=== PATIENT | male | born 1990 | race Caucasian/White ===

== ENCOUNTER → 2023-11-15 09:11 | Outpatient (CLI) | payer OTHER, SELFPAY ==
--- NOTE | 2023-11-15 09:23 | DI.RAD.S_ITS ---
PROCEDURE: XR LUMBAR SPINE 2-3V INDICATIONS: LOW BACK PAIN TECHNIQUE: 3 views of the lumbar spine were acquired. COMPARISON: None. FINDINGS: Bones: 5 [id number] vertebrae are present. There is normal bony alignment. No vertebral body compression fractures. No suspicious bony lesions. Soft tissues: Overlying bowel gas pattern is normal. No suspicious soft tissue calcifications. IMPRESSION: No acute bony abnormality. Dictated by: Chacha Zamora M.D. on 11/15/2023 at 16:28 Approved by: Chacha Zamora M.D. on 11/15/2023 at 16:28
--- NOTE | 2023-11-15 09:23 | DI.RAD.S_ITS ---
PROCEDURE: XR WRIST RT MIN 3V INDICATIONS: WRIST PAIN TECHNIQUE: 3 views of the wrist were acquired. COMPARISON: None. FINDINGS: Bones: No acute fractures or dislocations. No suspicious bony lesions. Question old healed 5th metacarpal neck fracture. Soft tissues: No suspicious soft tissue calcifications. IMPRESSION: No acute bony abnormality. If clinical symptoms persist or clinical suspicion for pathology is high, a repeat examination in 7-10 days, or advanced imaging such as CT or MRI is suggested for further evaluation. Dictated by: Renetta Alexander M.D. on 11/16/2023 at 8:12 Approved by: Renetta Alexander M.D. on 11/16/2023 at 8:12
== END ==
PROVIDERS: PCP Family Medicine; Referring Provider Family Medicine; Visit Provider Family Medicine
DX: M79.631 Pain in right forearm (principal); M79.641 Pain in right hand; M54.42 Lumbago with sciatica, left side; G89.29 Other chronic pain
CPT/HCPCS: 72100; 73110

== ENCOUNTER 2023-12-18 13:00 | Outpatient (RCR) | payer OTHER, SELFPAY ==
--- NOTE | 2023-11-27 15:55 | OT.OP.EVAL ---
Visit Care Team Role Provider Type Matheus Marks MD Attending Provider Physician Family Provider Primary Care Provider Referring Provider Specialty: Family Practice Obstetrics Address: [address], [place], [address] Email: [email or web address] Occupational Therapy Initial Evaluation OT Outpatient Adult Evaluation Start: 11/27/23 13:29 Freq: Status: Active Protocol: Document 11/27/23 13:30 AMS (Rec: 11/27/23 13:36 AMS [id number]) General Information - Adult Visit Number 1 Plan of Care Dates 11/27/23 - 12/25/23 Insurance Information [facility] OT; Pre-auth initial x 6 visits; will be having PT Visit Start Time 13:00 Visit Stop Time 13:30 Treatment Setting Outpatient Care Note Type Initial Evaluation Identification Confirmed Yes Identification Confirmed By Self Goals [facility] Goals 1. Will will be modified independent with home exercise program referring to written/ visual instructions as needed. 2. Will will present with increased ability to successfully engage in meaningful activities of daily living, as evidenced by the followina. Will will obtain a QuickDASH UE Outcome Score of 15.00 or less. 2b. Will will obtain a QuickDASH UE Work Module Score of 25.00 or less. Assessment/Plan Treatment Assessment Ander (Parker) is a right hand dominant 33 year-old referred to OT secondary to R hand/ forearm pain. Will does use 20 # DB for UE strengthening. 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 Indication of pain/discomfort on Hand/Wrist Pain Assessment Grid relative to volar surface distal to R wrist, distal palmar crease to distal tips of fingers the 3rd, 4th and 5th digits, and dorsal surface distal to R wrist to distal PIPJ of 3rd and 4th digits and DIPJ of 5th digit. Verbal report of discomfort of R 5th digit w/ passive R wrist RD. Right hand/forearm pain reportedly is manageable in the morning, however, pain/ discomfort progresses throughout the day until the evening when he is in constant pain. He does take Ibuprofen for pain and uses ice paick; he does have a wrist brace but is unable to wear it full- time at work. (+) popping of R wrist w/ rolling of R wrist. Goniometer measurements were as follows: 0-70 degrees active R wrist ext vs 0-75 degrees active L wrist ext; 0- 75 degrees active R wrist flex vs 0-65 degrees active L wrist flex. 0-[address] active bilateral wrist [address]. 0- 30 degrees active bilateral wrist UD. Manual Muscle Testing was as follows: 5-/5 MMT for R wrist w/ flex/ext/RD /UD vs 5/5 MMT for L wrist w/ flex/ext/RD/UD. Dynamometer environmental technology professor II strength testing = 103 .0# of force R environmental technology professor (compared to 30-34 y.o. male norms 121.8 +/- 22.4) vs 98.0# of force L environmental technology professor (compared to 30-34 y.o. male norms 110.4 +/- 21.7). 106.0# of force R environmental technology professor w/ elbow ext vs 105.0# of force L environmental technology professor w/ elbow ext. Pinchometer strength testing results: 28.0# of force R lateral canales pinch (compared to 30-34 y.o. male norms 26.4 +/ - 4.8) vs 25.0# of force L lateral canales pinch (compared to 30-34 y.o. male non-dominant norms 26.2 +/- 5.1); 22.0# of force R tip pinch (compared to 30-34 y.o. male norms 17.4 +/ - 6.7) vs 18.0# of force L tip pinch (compared to 30-34 y.o. male non-dominant norms 17.6 +/- 4.8); 26.0# of force R 3- jaw pinch (compared to 30-34 y .o. male norms 24.7 +/- 4.7) vs 25.0# of force L 3-jaw pinch (compared to 30-34 y.o. male non-dominant norms 25.4 + /- 5.7). (-) intrinsic tightness notedMild flexion of digits 2-5 of R hand/at MP joints 2-5. Outpatient OT to help with establishment of home exercise program and discuss joint protection. Home Exercise Program 11/27/23 = Instructed in modified prayer pose w/ contralateral assist for passive MPJ extension in both directions. Hands positioned together at midline w/ fingers of the R hand pushing into L hand fingers 2-5 (extending or bending pointer finger, middle finger, ring finger, and little finger backwards distal to palm); repeat with other hand. Hold for 20-30 sec each. Also instructed in alternative stretch w/ formation of hook with 1 hand and other hand grasping the hooked hand and again extending to bending pointer finger, middle finger, ring finger and little finger backwards at joints distal to palm - the MCPJ joints). Instructed in passive wrist ext w/ elbow in ext or w/ elbow slightly bent for comfort w/ supination and opposite hand bending hand backwards at wrist, as well as passive wrist flex w/ elbow in ext or w/ elbow slightly bent for comfort w/ forearm ponation and opposite hand bend hand towards the floor/ flexing the wrist. Instructed in passive wrist RD/UD w/ use of TT. Rec hold for 20-30 each and to complete with both arms. Length of treatment (weeks) 4 Plan of Care Start Date 11/27/23 Plan of Care End Date 12/25/23 Treatment Frequency Once a Week Therapeutic Contents Active Range of Motion, Functional Activities,Home Exercise Program,Joint Protection,Manual Therapy, Stretching/Flexibility Activities,Therapeutic Activities,Therapeutic Exercises,Modalities Modalities As Needed,As Prescribed Additional Types of Modalities Heat/Ice/Contrast Baths
--- NOTE | 2023-12-04 15:34 | OT.OP.TRT ---
Visit Care Team Role Provider Type Matheus Marks MD Attending Provider Physician Family Provider Primary Care Provider Referring Provider Specialty: Family Practice Obstetrics [facility] [facility] [place], [address] Email: [email or web address] Occupational Therapy Treatment Note OT Outpatient Treatment Note - Adult Start: 11/27/23 13:29 Freq: Status: Active Protocol: Document 12/04/23 15:31 AMS (Rec: 12/04/23 15:33 AMS [id number]) OT Outpatient Adult Treatment Note - Subjective Observations Will did not attend his scheduled 1:00 pm outpatient OT appointment; thus, clinician contacted Will via Patient Connect Live to notify him of his missed appointment and let him know the time and date of his next scheduled appointment. Phone number for outpatient clinic was included in Patient Connect Live message. - - - -
--- NOTE | 2023-12-11 12:22 | OT.OP.TRT ---
Visit Care Team Role Provider Type Matheus Marks MD Attending Provider Physician Family Provider Primary Care Provider Referring Provider Specialty: Family Practice Obstetrics Address: [address], [place], [address] Email: [email or web address] Occupational Therapy Treatment Note OT Outpatient Treatment Note - Adult Start: 11/27/23 13:29 Freq: Status: Active Protocol: Document 12/11/23 12:06 [facility] (Rec: 12/11/23 12:21 [facility] [id number]) OT Outpatient Adult Treatment Note Session Time Visit Start Time 11:20 Visit Stop Time 11:50 Visit Information Visit Number 2 Plan of Care Dates 11/27/23 - 12/25/23 Insurance Information [facility] OT; Pre-auth initial x 6 visits; will be having PT Setting Treatment Setting Outpatient Care Visit Type Note Type Treatment Note General Information General Information Ander (Parker) is a right hand dominant 33 year-old referred to OT secondary to R hand/ forearm pain. Will does use 20 # DB for UE strengthening. - Subjective Observations Report of concern re: carpal tunnel symptoms. - Objective Objective Measurements Please refer to below for progress towards meeting established OT goals: Vocational Technical Education Teacher Goals 1. Will will be modified independent with home exercise program referring to written/ visual instructions as needed. 2. Will will present with increased ability to successfully engage in meaningful activities of daily living, as evidenced by the followina. Will will obtain a QuickDASH UE Outcome Score of 15.00 or less. 2b. Will will obtain a QuickDASH UE Work Module Score of 25.00 or less. - Exercises 3 Descriptor Dowel w/ DB. 7# DB. Wrist flex/ext. x 3 cycles. 10# DB. Wrist flex/ext. x 1 cycle. 2 Descriptor UE strengthening. Blue flex bar. Pronation. Elbows 90 degrees. 1 x 15. Elbows ext. 1 x 15. Supination. Elbows 90 degrees. 1 x 15. Elbow ext. 1 x 15. Horizontal orientation of flex bar. Wrist flex/ext. 2 x 15. Vertical orientation of flex bar. Wrist flex/ext. [address]. 2 x 15. Wrist UD. 2 x 15. 1 Descriptor Passive range of motion/Tendon glides Intrinsic/passive hook fist. B x 20 sec. Intrinsic/passive hook fist MPJ ext. B x 20 sec. Passive wrist ext w/ forearm pronation. B x 20 sec. Passive wrist flex w/ forearm pronation. B x [address] B x 20 sec. Passive wrist UD. B x 20 sec. - Assessment Assessment of Improvement Will verbalized concern re: CTS symptoms. Reviewed passive intrinsic stretches w/ and without MPJ ext, passive wrist stretches (wrist flex/ext/RD/ UD). Informed Will that passive wrist flex/ext is also typically rec for CTS. Did not instruct in self- myofasical release, median nerve glides, or positioning/ posturing (or potential need for splinting); also did not have him execute reverse phalen's test given focus on identifying potential distal UE strengthening. Thus, recommend reviewing these at time of next session. Will did not demonstrate any difficulties w/ distal UE strengthening; thus, may need to focus on range of motion, glides, joint protection, activity modification w/ some UE strengthening intermixed. Home Exercise Program 11/27/23 = Instructed in modified prayer pose w/ contralateral assist for passive MPJ extension in both directions. Hands positioned together at midline w/ fingers of the R hand pushing into L hand fingers 2-5 (extending or bending pointer finger, middle finger, ring finger, and little finger backwards distal to palm); repeat with other hand. Hold for 20-30 sec each. Also instructed in alternative stretch w/ formation of hook with 1 hand and other hand grasping the hooked hand and again extending to bending pointer finger, middle finger, ring finger and little finger backwards at joints distal to palm - the MCPJ joints). Instructed in passive wrist ext w/ elbow in ext or w/ elbow slightly bent for comfort w/ supination and opposite hand bending hand backwards at wrist, as well as passive wrist flex w/ elbow in ext or w/ elbow slightly bent for comfort w/ forearm ponation and opposite hand bend hand towards the floor/ flexing the wrist. Instructed in passive wrist RD/UD w/ use of TT. Rec hold for 20-30 each and to complete with both arms. - Plan Therapy Recommendations Advance per Rehabilitation Protocol
--- NOTE | 2023-12-18 13:41 | OT.OP.TRT ---
Visit Care Team Role Provider Type Matheus Marks MD Attending Provider Physician Family Provider Primary Care Provider Referring Provider Specialty: Family Practice Obstetrics Address: [address], [place], [address] Email: [email or web address] Occupational Therapy Treatment Note OT Outpatient Treatment Note - Adult Start: 11/27/23 13:29 Freq: Status: Active Protocol: Document 12/18/23 13:30 AMS (Rec: 12/18/23 13:41 AMS [id number]) OT Outpatient Adult Treatment Note Session Time Visit Start Time 13:07 Visit Stop Time 13:30 Visit Information Visit Number 2 Plan of Care Dates 11/27/23 - 12/25/23 Insurance Information [facility] OT; Pre-auth initial x 6 visits; will be having PT Setting Treatment Setting Outpatient Care Visit Type Note Type Treatment Note General Information General Information Ander Nava) is a right hand dominant 33 year-old referred to OT secondary to R hand/ forearm pain. Will does use 20 # DB for UE strengthening. - Subjective Identification Type Name Identification Reconciled With Medical Record Observations Will indicated that his R hand bothers him more; for instance, when playing the piano he notices that his left hand moves freely where as his R hand is stiff and in pain a lot of the time. Report of living on a farm; has ducks, chickens, and pigs. - Objective Objective Measurements Please refer to below for progress towards meeting established OT goals: Halfway Goals 1. Will will be modified independent with home exercise program referring to written/ visual instructions as needed. 2. Will will present with increased ability to successfully engage in meaningful activities of daily living, as evidenced by the followina. Will will obtain a QuickDASH UE Outcome Score of 15.00 or less. 2b. Will will obtain a QuickDASH UE Work Module Score of 25.00 or less. - Exercises 3 Descriptor Dowel w/ DB. 7# DB. Wrist flex/ext. x 4 cycles. 2 Descriptor UE strengthening. Blue flex bar. Pronation. Elbows ext. 3 x 15. Supination. Elbows ext. 3 x 15 . Horizontal orientation of flex bar. Wrist flex. 3 x 15. Horizontal orientation of flex bar. Wrist ext. 3 x 15 Horizontal orientation of flex bar. Forearm pronation. Wrist RD. 3 x 15. Horizontal orientation of flex bar. Forearm supination. Wrist UD. 3 x 15. 1 Descriptor Passive range of motion/Tendon glides Intrinsic/passive hook fist. B x 20 sec. Intrinsic/passive hook fist MPJ ext. B x 20 sec. Passive wrist ext w/ forearm pronation. B x 20 sec. Passive wrist flex w/ forearm pronation. B x [address] B x 20 sec. Passive wrist UD. B x 20 sec. - Assessment Assessment of Improvement No reproduction of compression symptoms w/ reverse phalen's test; (-) verbal complaint of discomfort and/or (-) observed shaking of either hand post- 1 minute. Increased number of sets with flex bar strengthening exercises; increased dowel strengthening exercise w/ use of 7# DB to 4 sets vs 3. Did not complete w/ 10# DB on this date. Will complained of R hand pain/ discomfort; w/ observed decreased coordination of the R hand in comparison to the L hand w/ piano playing. Will cont to quite well w/ distal UE strengthening; thus, may want to instruct in self- myofasical release, and focus on range of motion, glides, joint protection, activity modification w/ some UE strengthening intermixed. Home Exercise Program 11/27/23 = Instructed in modified prayer pose w/ contralateral assist for passive MPJ extension in both directions. Hands positioned together at midline w/ fingers of the R hand pushing into L hand fingers 2-5 (extending or bending pointer finger, middle finger, ring finger, and little finger backwards distal to palm); repeat with other hand. Hold for 20-30 sec each. Also instructed in alternative stretch w/ formation of hook with 1 hand and other hand grasping the hooked hand and again extending to bending pointer finger, middle finger, ring finger and little finger backwards at joints distal to palm - the MCPJ joints). Instructed in passive wrist ext w/ elbow in ext or w/ elbow slightly bent for comfort w/ supination and opposite hand bending hand backwards at wrist, as well as passive wrist flex w/ elbow in ext or w/ elbow slightly bent for comfort w/ forearm ponation and opposite hand bend hand towards the floor/ flexing the wrist. Instructed in passive wrist RD/UD w/ use of TT. Rec hold for 20-30 each and to complete with both arms. - Plan Therapy Recommendations Advance per Rehabilitation Protocol
--- NOTE | 2024-01-18 11:29 | OT.OP.DC ---
Visit Care Team Role Provider Type Matheus Marks MD Attending Provider Physician Family Provider Primary Care Provider Referring Provider Address: [facility] [address], [place], [address] Email: [email or web address] Outpatient OT Outpatient Adult Evaluation Start: 11/27/23 13:29 Freq: Status: Active Protocol: Document 11/27/23 13:30 AMS (Rec: 11/27/23 13:36 AMS [id number]) General Information - Adult Visit Information Visit Number 1 Plan of Care Dates 11/27/23 - 12/25/23 Insurance Information [facility] OT; Pre-auth initial x 6 visits; will be having PT Session Time Visit Start Time 13:00 Visit Stop Time 13:30 Setting Treatment Setting Outpatient Care Visit Type Note Type Initial Evaluation Identification Identification Confirmed Yes Identification Confirmed By Self Goals Senior Care Goals Senior Care Goals 1. Will will be modified independent with home exercise program referring to written/ visual instructions as needed. 2. Will will present with increased ability to successfully engage in meaningful activities of daily living, as evidenced by the followina. Will will obtain a QuickDASH UE Outcome Score of 15.00 or less. 2b. Will will obtain a QuickDASH UE Work Module Score of 25.00 or less. Assessment/Plan Assessment Treatment Assessment Ander (Parker) is a right hand dominant 33 year-old referred to OT secondary to R hand/ forearm pain. Will does use 20 # DB for UE strengthening. 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 Indication of pain/discomfort on Hand/Wrist Pain Assessment Grid relative to volar surface distal to R wrist, distal palmar crease to distal tips of fingers the 3rd, 4th and 5th digits, and dorsal surface distal to R wrist to distal PIPJ of 3rd and 4th digits and DIPJ of 5th digit. Verbal report of discomfort of R 5th digit w/ passive R wrist RD. Right hand/forearm pain reportedly is manageable in the morning, however, pain/ discomfort progresses throughout the day until the evening when he is in constant pain. He does take Ibuprofen for pain and uses ice paick; he does have a wrist brace but is unable to wear it full- time at work. (+) popping of R wrist w/ rolling of R wrist. Goniometer measurements were as follows: 0-70 degrees active R wrist ext vs 0-75 degrees active L wrist ext; 0- 75 degrees active R wrist flex vs 0-65 degrees active L wrist flex. 0-[address] wrist [address]. 0- 30 degrees active bilateral wrist UD. Manual Muscle Testing was as follows: 5-/5 MMT for R wrist w/ flex/ext/RD /UD vs 5/5 MMT for L wrist w/ flex/ext/RD/UD. Dynamometer experimental machining lab manager II strength testing = 103 .0# of force R experimental machining lab manager (compared to 30-34 y.o. male norms 121.8 +/- 22.4) vs 98.0# of force L experimental machining lab manager (compared to 30-34 y.o. male norms 110.4 +/- 21.7). 106.0# of force R experimental machining lab manager w/ elbow ext vs 105.0# of force L experimental machining lab manager w/ elbow ext. Pinchometer strength testing results: 28.0# of force R lateral canales pinch (compared to 30-34 y.o. male norms 26.4 +/ - 4.8) vs 25.0# of force L lateral canales pinch (compared to 30-34 y.o. male non-dominant norms 26.2 +/- 5.1); 22.0# of force R tip pinch (compared to 30-34 y.o. male norms 17.4 +/ - 6.7) vs 18.0# of force L tip pinch (compared to 30-34 y.o. male non-dominant norms 17.6 +/- 4.8); 26.0# of force R 3- jaw pinch (compared to 30-34 y .o. male norms 24.7 +/- 4.7) vs 25.0# of force L 3-jaw pinch (compared to 30-34 y.o. male non-dominant norms 25.4 + /- 5.7). (-) intrinsic tightness notedMild flexion of digits 2-5 of R hand/at MP joints 2-5. Outpatient OT to help with establishment of home exercise program and discuss joint protection. Home Exercise Program 11/27/23 = Instructed in modified prayer pose w/ contralateral assist for passive MPJ extension in both directions. Hands positioned together at midline w/ fingers of the R hand pushing into L hand fingers 2-5 (extending or bending pointer finger, middle finger, ring finger, and little finger backwards distal to palm); repeat with other hand. Hold for 20-30 sec each. Also instructed in alternative stretch w/ formation of hook with 1 hand and other hand grasping the hooked hand and again extending to bending pointer finger, middle finger, ring finger and little finger backwards at joints distal to palm - the MCPJ joints). Instructed in passive wrist ext w/ elbow in ext or w/ elbow slightly bent for comfort w/ supination and opposite hand bending hand backwards at wrist, as well as passive wrist flex w/ elbow in ext or w/ elbow slightly bent for comfort w/ forearm ponation and opposite hand bend hand towards the floor/ flexing the wrist. Instructed in passive wrist RD/UD w/ use of TT. Rec hold for 20-30 each and to complete with both arms. Plan Length of treatment (weeks) 4 Plan of Care Start Date 11/27/23 Plan of Care End Date 12/25/23 Treatment Frequency Once a Week Therapeutic Contents Active Range of Motion, Functional Activities,Home Exercise Program,Joint Protection,Manual Therapy, Stretching/Flexibility Activities,Therapeutic Activities,Therapeutic Exercises,Modalities Modalities As Needed,As Prescribed Additional Types of Modalities Heat/Ice/Contrast Baths Functional Wrist/Hand Scan Hand Side Sensory Assessment Sensory Profile2 OT Outpatient Treatment Note - Adult Start: 11/27/23 13:29 Freq: Status: Active Protocol: Document 01/18/24 11:27 [facility] (Rec: 01/18/24 11:29 [facility] [id number]) OT Outpatient Adult Treatment Note Visit Information Visit Number 2 Plan of Care Dates 11/27/23 - 12/25/23 Insurance Information [facility] OT; Pre-auth initial x 6 visits; will be having PT Setting Treatment Setting Outpatient Care Visit Type Note Type Discharge Summary - Subjective Observations Will has not been seen in the outpatient setting by OT since 12/18/23 and outpatient OT POC on 12/25/23; thus, recommend d/c from outpatient OT at this time and re- evaluate as deemed appropriate by PCP w/ receipt of new referral. - Objective Objective Measurements Please refer to below for progress towards meeting established OT goals: Quality Assurance Lab Technician Goals D/C ALL GOALS OF 01/18/24 1. Will will be modified independent with home exercise program referring to written/ visual instructions as needed. 2. Will will present with increased ability to successfully engage in meaningful activities of daily living, as evidenced by the followina. Will will obtain a QuickDASH UE Outcome Score of 15.00 or less. 2b. Will will obtain a QuickDASH UE Work Module Score of 25.00 or less. - - Assessment Assessment of Improvement Will has not been seen in the outpatient setting by OT since 12/18/23 and outpatient OT POC on 12/25/23; thus, recommend d/c from outpatient OT at this time and re- evaluate as deemed appropriate by PCP w/ receipt of new referral. - Plan Therapy Recommendations Discharge from Occupational Therapy
== END 2024-02-18 14:06 | disposition home or self-care (01) ==
LOC: OT 13:00
PROVIDERS: Family Provider Family Medicine; PCP Family Medicine; Referring Provider Family Medicine; Visit Provider Family Medicine
DX: M79.641 Pain in right hand (principal); M79.631 Pain in right forearm
CPT/HCPCS: 97110; 97165

== ENCOUNTER 2023-12-20 10:30 | Outpatient (RCR) | payer OTHER, SELFPAY ==
--- NOTE | 2023-11-29 16:49 | PT.OIE ---
Current Diagnoses Lumbago with sciatica, left side (11/29/23) Past Medical History (Last Updated 11/15/23 @ 21:27 by Matheus Marks MD) History of varicocele (~2013) Visit Care Team Role Provider Type Matheus Marks MD Attending Provider Physician Family Provider Primary Care Provider Referring Provider Specialty: Family Practice Obstetrics Address: [address] [place] [address], [facility] Email: [email or web address] Physical Therapy Initial Evaluation PT-OP-A Visit Information Start: 11/29/23 07:25 Freq: Status: Active Protocol: Document 11/29/23 08:21 LRN (Rec: 11/29/23 09:11 LRN [id number]) Out-Patient Physical Therapy Visit Information Visit Information Visit Type Initial Evaluation Visit Start Time 08:21 Visit Stop Time 09:05 Visit Number 1 Evaluation Information Evaluation Date 11/29/23 Precautions Precautions Torn ACL 7 rs ago, vericele ( scrotum), chronic neck/back pain. PT-OP-B Current Condition Start: 11/29/23 07:25 Freq: Status: Active Protocol: Document 11/29/23 08:21 LRN (Rec: 11/29/23 09:11 LRN [id number]) Current Condition History of Current Condition Onset Date 4-5 months ago. Current Complaints Back/LLE posterior thigh constant pain. History of Current Condition Back pain since high school. Has high pain tolerance, but in past 4-5 months the back pain is now down the posterior LLE into the thigh and sometimes into the ankle. Hx of torn ACL, states the L knee hurts like it was when torn. Prior Treatments and Tests None. Treatment Goals Patient/Caregiver Goals Pt goal is to elimnate LLE pain. Self care HEP. 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 Current Functional Impairments (Reported) Functional Limitations- Work/School Avoiding heavy stuff at work as much as possible. Personal Factors Other Personal Factors That May Effect Torn ACL 7 rs ago, cosmetics counter manager at [employer] restaurant with some lifting, lives on a farm and does farmwork PT-OP-C Subjective Start: 11/29/23 07:25 Freq: Status: Active Protocol: Document 11/29/23 08:21 LRN (Rec: 11/29/23 09:11 LRN [id number]) Patient Questionnaires Oswestry Low Back Index Oswestry Score 32 Oswestry Impairment 20 to 39% Impaired (Score 20- 39) OP-PT Pain Assessment Pain Assessment Grid Paper Pain Assessment Grid Completed Yes Location LB/LLE pain Pain Location Details LB/Posterior LLE Intensity 6 Scale Used Numeric (0 - 10) Description Aching,Burning,Shooting, Stabbing,Tightness,Throbbing Description- Other Sometimes stabbing at L SIJ Frequency Frequent Radiating Location Posterior LLE to knee, sometimes to ankle. Variations/Patterns LBP is constant, LLE pain is constant but varies in intensity PT-OP-J Posture/Palpation/Skin Start: 11/29/23 07:25 Freq: Status: Active Protocol: Document 11/29/23 08:21 LRN (Rec: 11/29/23 09:11 LRN [id number]) Posture Evaluation Position Standing L-Spine Posture Increased Lordosis,Shifted Left Pelvis Posture Neutral Weight Distribution Weight Shifted Right,Weight Shifted Anterior Ankle/Foot Posture (R) Forefoot Abducted Palpation Assessment Location L lateral hip Palpation Location L lateral hip Palpation Findings Muscle Guarding Back Palpation Location L3 & S3 Palpation Findings Tenderness PT-OP-K Range of Motion Start: 11/29/23 07:25 Freq: Status: Active Protocol: Document 11/29/23 08:21 LRN (Rec: 11/29/23 09:11 LRN [id number]) Hip Goniometric Range of Motion Hip Right Passive Testing Position Supine Internal Rotation 50 External Rotation 45 Left Passive Testing Position Supine Internal Rotation 40 External Rotation 50 PT-OP-L Special Tests Start: 11/29/23 07:25 Freq: Status: Active Protocol: Document 11/29/23 08:21 LRN (Rec: 11/29/23 09:11 LR [id number]) Special Tests Lumbar Spine Special Tests Suraj Test Results + bilaterally with L worse than R Manual Traction Test Results - Straight Leg Raise Test Results + left @ 50 deg's, - R @ 80 deg's. Comments Posterior LLE tightness discomfort Slump Test Results + LE Vertical Spine Loading Test Results - Hip Special Tests Log Roll Test Test Results - left Stinchfield Resisted Hip Flexion Test Results - Left Comments c/o pain at Iliopsoas region of pelvis DEEPALI Test Results + Left PT-OP-M Strength Start: 11/29/23 07:25 Freq: Status: Active Protocol: Document 11/29/23 08:21 LRN (Rec: 11/29/23 09:11 LRN [id number]) Trunk Strength Trunk Manual Muscle Testing Core Stabilization Mild decrease in trunk rot strength. Hip Strength Hip Manual Muscle Testing Right Flexion (L2) 5 Normal Left Flexion (L2) 5 Normal PT-OP-Q Treatments Start: 11/29/23 07:25 Freq: Status: Active Protocol: Document 11/29/23 08:21 LRN (Rec: 11/29/23 09:11 LRN [id number]) Therapeutic Exercises Supine Exercises L Hamstring/LE neural glids Side left Reps/Minutes 3' Comments Extra time was needed to determine max tolerated stretch Prone Exercises JO Prone Exercise Name JO Reps/Minutes 5x Comments Cued to keep pelvis on table. Sitting Exercises Hip ER stretch Side left Reps/Minutes 2' Held due to Not able to find a painfree position. Piriformis stretch Side left Reps/Minutes 2' Not able to get appropriate stretch, held until next visit Self-Care/Home Management Treatment Education Patient Education Body Mechanics,Posture Other Education Discussed results of evaluation, goals, and plan of care (POC) with pt, discussed attendance/cx/dns policy; pt agreeable to goals, attendance /cx/dns policy and POC. Activities Self-Care/Home Management Activities I/S pt to monitor and correct sitting/standing posture at home and work. I/S LLE neural glide, sitting hip ER/piriformis stretch, and JO ex. PT-OP-T Assessment and Plan Start: 11/29/23 07:25 Freq: Status: Active Protocol: Document 11/29/23 08:21 LRN (Rec: 11/29/23 09:11 LRN [id number]) Physical Therapy Assessment Rehab Potential Rehabilitation Potential Good Evaluation Complexity Number of Personal Factors/Comorbidities 3 or More Number of Body Systems Impaired 4 or More Clinical Presentation at Evaluation Evolving Impairments Impairments Activity Tolerance,Pain, Posture,ROM,Soft Tissue Mobility,Strength Goals Two Impairment LBP/L LE pain rated 6/10 Impairment DUY score is 16/50 (32/100= 32 % impaired) Short Term Goal (STG) Decrease LBP & LLE pain 50% STG Duration 4 wks-12/28/23 Customer Service Correspondence Clerk Goal (LTG) Decrease LBP to prior level and eliminate LLE pain. Improve function per DUY score . LTG Duration 8 wks-01/25/24 One Impairment Pt lacks self care HEP. Impairment Self care HEP. Short Term Goal (STG) Pt will be educated in proper sit/stand posture and understanding stress on back in different postures (Proper Posture: Rowley to Safe Movement ). STG Duration 4 wks-12/28/23 Snf Goal (LTG) Pt will be independent in a self care HEP of low back, core and hip ROM and strengthening exercises. LTG Duration 8 wks-01/25/24 Assessment Summary Assessment Pt is a 33 yo male who presents with inconsistent symptoms, but symptoms more indicative of L sciatic pain ( posterior hip/LE pain, +Deepali Test). He shows signs of possible neural involvement with + slump and PSLR test. The pt has a history of chronic back pain that may be cause of his inconsistent provacative testing results. The pt does show decreased hip mobility and postural changes that would also benefit from skilled physical therapy for pt education, thera activity training, exercise, manual therapy, JMT, neuro- reeducation, and use of modalities and HEP. Physical Therapy Plan Frequency and Duration Frequency of Treatment 1x/Week Duration of treatment (weeks) 8 Plan of Care Start Date 11/29/23 Plan of Care End Date 01/25/24 Therapeutic Interventions Therapeutic Interventions Home Exercise Program,Joint Mobilizations,Manual Therapy, Neuromuscular Re-education, Self-Care/Home Management,Soft Tissue Mobilization, Therapeutic Activities, Therapeutic Exercises Next Visit Focus/Plan Next Note Type Treatment Note Next Visit Plan 6 visits, others pre-auth required. Discuss if pt to be mostly on HEP if financial concerns. Review I/S LLE neural glide, sitting hip ER/ piriformis stretch, and JO ex . Add L Iliopsoas stretch if tolerated and trunk rotation strengthenig. Assess trunk mobility and add to HEP ex's as appropriate. Assess for pelvic obliquity. ?Sacral balancing & pelvic stab. Continue with Hip stretching that is tolerable and appropriate. Discuss/educate pt in proper sitting and standing posture with emphasis on decreasing lordosis in standing and preventing lumbar flexion in sitting, equal weightbearing standing. Discuss/educate in general body mechanics. Modalities (MH/IFES, Ice/IFES) for pain management.
--- NOTE | 2023-11-29 16:51 | PT.OPPOC ---
Physical, Occupational & Speech Therapy At [facility] Current Diagnoses Lumbago with sciatica, left side (11/29/23) Visit Care Team Role Provider Type Matheus Marks MD Attending Provider Physician Family Provider Primary Care Provider Referring Provider Specialty: Family Practice Obstetrics Address: [facility] [place], [address] Email: [email or web address] Plan Of Care PT-OP-T Assessment and Plan Start: 11/29/23 07:25 Freq: Status: Active Protocol: Document 11/29/23 08:21 LRN (Rec: 11/29/23 09:11 LRN [id number]) Physical Therapy Assessment Rehab Potential Rehabilitation Potential Good Evaluation Complexity Number of Personal Factors/Comorbidities 3 or More Number of Body Systems Impaired 4 or More Clinical Presentation at Evaluation Evolving Impairments Impairments Activity Tolerance,Pain, Posture,ROM,Soft Tissue Mobility,Strength Goals Two Impairment LBP/L LE pain rated 6/10 Impairment DUY score is 16/50 (32/100= 32 % impaired) Short Term Goal (STG) Decrease LBP & LLE pain 50% STG Duration 4 wks-12/28/23 Pit Inspector Goal (LTG) Decrease LBP to prior level and eliminate LLE pain. Improve function per DUY score . LTG Duration 8 wks-01/25/24 One Impairment Pt lacks self care HEP. Impairment Self care HEP. Short Term Goal (STG) Pt will be educated in proper sit/stand posture and understanding stress on back in different postures (Proper Posture: Rowley to Safe Movement ). STG Duration 4 wks-12/28/23 Fdc Goal (LTG) Pt will be independent in a self care HEP of low back, core and hip ROM and strengthening exercises. LTG Duration 8 wks-01/25/24 Assessment Summary Assessment Pt is a 33 yo male who presents with inconsistent symptoms, but symptoms more indicative of L sciatic pain ( posterior hip/LE pain, +Miri Test). He shows signs of possible neural involvement with + slump and PSLR test. The pt has a history of chronic back pain that may be cause of his inconsistent provacative testing results. The pt does show decreased hip mobility and postural changes that would also benefit from skilled physical therapy for pt education, thera activity training, exercise, manual therapy, JMT, neuro- reeducation, and use of modalities and HEP. Physical Therapy Plan Frequency and Duration Frequency of Treatment 1x/Week Duration of treatment (weeks) 8 Plan of Care Start Date 11/29/23 Plan of Care End Date 01/25/24 Therapeutic Interventions Therapeutic Interventions Home Exercise Program,Joint Mobilizations,Manual Therapy, Neuromuscular Re-education, Self-Care/Home Management,Soft Tissue Mobilization, Therapeutic Activities, Therapeutic Exercises Next Visit Focus/Plan Next Note Type Treatment Note Next Visit Plan 6 visits, others pre-auth required. Discuss if pt to be mostly on HEP if financial concerns. Review I/S LLE neural glide, sitting hip ER/ piriformis stretch, and JO ex . Add L Iliopsoas stretch if tolerated and trunk rotation strengthenig. Assess trunk mobility and add to HEP ex's as appropriate. Assess for pelvic obliquity. ?Sacral balancing & pelvic stab. Continue with Hip stretching that is tolerable and appropriate. Discuss/educate pt in proper sitting and standing posture with emphasis on decreasing lordosis in standing and preventing lumbar flexion in sitting, equal weightbearing standing. Discuss/educate in general body mechanics. Modalities (MH/IFES, Ice/IFES) for pain management. Plan of Care Dates Plan of Care Start Date 11/29/23 Plan of Care End Date 01/25/24 Electronically Signed by: Rabia Rutherford, PT 11/30/231950 If you are in agreement with this Plan of Care, please return a signed and dated copy. I have reviewed this Plan of Care and certify that the skilled therapy services above are required to meet the patient?s needs. Physician Signature Date Printed Name and Credentials Clinical Instructor Signature Printed Name and Credentials
--- NOTE | 2023-12-11 17:08 | PT.OTN ---
Current Diagnoses Lumbago with sciatica, left side (12/11/23) Physical Therapy Treatment Note PT-OP-A Visit Information Start: 11/29/23 07:25 Freq: Status: Active Protocol: Document 12/11/23 08:17 LRN (Rec: 12/11/23 09:05 LRN [id number]) Out-Patient Physical Therapy Visit Information Visit Information Visit Type Treatment Note Visit Start Time 08:17 Visit Stop Time 09:01 Visit Number 3 Evaluation Information Evaluation Date 11/29/23 Precautions Precautions Torn ACL 7 rs ago, vericele ( scrotum), chronic neck/back pain. PT-OP-B Current Condition Start: 11/29/23 07:25 Freq: Status: Active Protocol: Document 11/29/23 08:21 LRN (Rec: 11/29/23 09:11 LRN [id number]) Current Condition History of Current Condition Onset Date 4-5 months ago. Current Complaints Back/LLE posterior thigh constant pain. History of Current Condition Back pain since high school. Has high pain tolerance, but in past 4-5 months the back pain is now down the posterior LLE into the thigh and sometimes into the ankle. Hx of torn ACL, states the L knee hurts like it was when torn. Prior Treatments and Tests None. Treatment Goals Patient/Caregiver Goals Pt goal is to elimnate LLE pain. Self care HEP. 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 Current Functional Impairments (Reported) Functional Limitations- Work/School Avoiding heavy stuff at work as much as possible. Personal Factors Other Personal Factors That May Effect Torn ACL 7 rs ago, fixed income portfolio manager at [employer] restaurant with some lifting, lives on a farm and does farmwork PT-OP-C Subjective Start: 11/29/23 07:25 Freq: Status: Active Protocol: Document 12/11/23 08:17 LRN (Rec: 12/11/23 09:05 LRN [id number]) OP-PT Subjective Patient Comments Patient Comments Pt reports his L posterior distal thigh has been painful around the time of his LB/ Sciatic pain. Has been doing more around the farm. Adding more to a building, contruction type stuff. Trying to refrain from lifting , but doing construction. Today LBP/LLE is rated 5-6/10. Taking IBP and ice. PT-OP-J Posture/Palpation/Skin Start: 11/29/23 07:25 Freq: Status: Active Protocol: Document 11/29/23 08:21 LRN (Rec: 11/29/23 09:11 LRN [id number]) Posture Evaluation Position Standing L-Spine Posture Increased Lordosis,Shifted Left Pelvis Posture Neutral Weight Distribution Weight Shifted Right,Weight Shifted Anterior Ankle/Foot Posture (R) Forefoot Abducted Palpation Assessment Location L lateral hip Palpation Location L lateral hip Palpation Findings Muscle Guarding Back Palpation Location L3 & S3 Palpation Findings Tenderness PT-OP-K Range of Motion Start: 11/29/23 07:25 Freq: Status: Active Protocol: Document 11/29/23 08:21 LRN (Rec: 11/29/23 09:11 LRN [id number]) Hip Goniometric Range of Motion Hip Right Passive Testing Position Supine Internal Rotation 50 External Rotation 45 Left Passive Testing Position Supine Internal Rotation 40 External Rotation 50 PT-OP-L Special Tests Start: 11/29/23 07:25 Freq: Status: Active Protocol: Document 11/29/23 08:21 LRN (Rec: 11/29/23 09:11 LRN [id number]) Special Tests Lumbar Spine Special Tests Suraj Test Results + bilaterally with L worse than R Manual Traction Test Results - Straight Leg Raise Test Results + left @ 50 deg's, - R @ 80 deg's. Comments Posterior LLE tightness discomfort Slump Test Results + LE Vertical Spine Loading Test Results - Hip Special Tests Log Roll Test Test Results - left [facility] Resisted Hip Flexion Test Results - Left Comments c/o pain at Iliopsoas region of pelvis DEEPALI Test Results + Left PT-OP-M Strength Start: 11/29/23 07:25 Freq: Status: Active Protocol: Document 11/29/23 08:21 LRN (Rec: 11/29/23 09:11 LRN [id number]) Trunk Strength Trunk Manual Muscle Testing Core Stabilization Mild decrease in trunk rot strength. Hip Strength Hip Manual Muscle Testing Right Flexion (L2) 5 Normal Left Flexion (L2) 5 Normal PT-OP-Q Treatments Start: 11/29/23 07:25 Freq: Status: Active Protocol: Document 12/11/23 08:17 LRN (Rec: 12/11/23 09:05 LRN [id number]) Therapeutic Exercises Supine Exercises TA/SLR Supine Exercise Name R>L due to poor stab on R (non -painful side) Side bilateral Resistance Started with Cheng hand/knee press. Reps/Minutes 3' Comments Extra time taken for pt to identify core ms to contract Hip ER Side left Reps/Minutes 2' Piriformis stretch Side left Reps/Minutes 2' TA/heel slides Side left Reps/Minutes 15x 2 (3') Comments Pt able to keep pelvis level with training TA tightening Reps/Minutes 2' Prone Exercises JO Prone Exercise Name JO Reps/Minutes 10x 2 (3') Comments Cued for breath and to keep pelvis on table. Sitting Exercises Hamstring/LE neural glide Sitting Exercise Name For L sciatic/LBP Side left Reps/Minutes 2' Comments Cued to not move ankle into pain. Manual Therapy Treatment Soft Tissue Mobilization L hip Body Location posterior hip, hamstring, IT Band Mobilization Type Instrument Assisted Intensity/Depth Moderate Body Position Prone & R sidelie Manual Traction LLE axial traction Details DC'd after traction Body Position Supine Reps/Duration 2' Comments No change in pain. Lumbar Details Lumbar traction - DC'd Body Position Hooklying Reps/Duration 2' Comments Incr in LBP PT-OP-T Assessment and Plan Start: 11/29/23 07:25 Freq: Status: Active Protocol: Document 12/11/23 08:17 LRN (Rec: 12/11/23 09:05 LRN [id number]) Physical Therapy Assessment Goals Two Impairment LBP/L LE pain rated 6/10 Impairment DUY score is 16/50 (32/100= 32 % impaired) Short Term Goal (STG) Decrease LBP & LLE pain 50% STG Duration 4 wks-12/28/23 [facility] Goal (LTG) Decrease LBP to prior level and eliminate LLE pain. Improve function per DUY score . LTG Duration 8 wks-01/25/24 One Impairment Pt lacks self care HEP. Short Term Goal (STG) Pt will be educated in proper sit/stand posture and understanding stress on back in different postures (Proper Posture: Rowley to Safe Movement ). 12/06/23: Educated pt in subjects above with handouts issued. STG Duration 4 wks-12/28/23 (12/06/23: MET GOAL) Drafter Electronic Goal (LTG) Pt will be independent in a self care HEP of low back, core and hip ROM and strengthening exercises. 12/06/23: Educated in general body mechanics. LTG Duration 8 wks-01/25/24 progressed Assessment Summary Assessment Pt is a 33 yo male who presents with symptoms indicative of L sciatic pain as manual traction increases pain, & + Deepali. Pt has L hamstring pain and swelling at distal hamstring; indicative of soft tissue dysfunction, possibly associated to his sciatic pain. Supine leg length appears even; therefore no pelvic anter/finance vice president rotation present. Pt has TA weakness and core instability of R (non-painful side), probably due to L is his dominant side. Poor core stab awareness although able to perform ex's with greater awareness well with training. Physical Therapy Plan Frequency and Duration Frequency of Treatment 1x/Week Duration of treatment (weeks) 8 Plan of Care Start Date 11/29/23 Plan of Care End Date 01/25/24 Next Visit Focus/Plan Next Note Type Treatment Note Next Visit Plan 4 visits, others pre-auth required. Discuss if pt to be mostly on HEP if financial concerns. Monitor L posterior distal thigh pain/swelling. Review Sitting SL hip AD stretch, Supine stretches: Fig 4, and if tolerated Piriformis/ Lateral hip & HEP if tolerated , along with JO. Assess for pelvic obliquity (inflare/ outflare) & trunk mobility and add to HEP ex's as appropriate. Discuss/educate pt in proper sitting and standing posture with emphasis on decreasing lordosis in standing and preventing lumbar flexion in sitting, equal weightbearing standing. Add L Iliopsoas stretch if tolerated and trunk rotation strengthening. End w/MH or ice/IFES to LB/ Sacrum for pain management. ?Sacral balancing & pelvic stab. Continue with Hip stretching that is tolerable and appropriate.
--- NOTE | 2023-12-20 14:28 | PT.OTN ---
Current Diagnoses Lumbago with sciatica, left side (12/20/23) Physical Therapy Treatment Note PT-OP-A Visit Information Start: 11/29/23 07:25 Freq: Status: Active Protocol: Document 12/20/23 10:34 LRN (Rec: 12/20/23 11:20 LRN [id number]) Out-Patient Physical Therapy Visit Information Visit Information Visit Type Treatment Note Visit Start Time 10:34 Visit Stop Time 11:29 Visit Number 4 Evaluation Information Evaluation Date 11/29/23 Precautions Precautions Torn ACL 7 rs ago, vericele ( scrotum), chronic neck/back pain. PT-OP-B Current Condition Start: 11/29/23 07:25 Freq: Status: Active Protocol: Document 11/29/23 08:21 LRN (Rec: 11/29/23 09:11 LRN [id number]) Current Condition History of Current Condition Onset Date 4-5 months ago. Current Complaints Back/LLE posterior thigh constant pain. History of Current Condition Back pain since high school. Has high pain tolerance, but in past 4-5 months the back pain is now down the posterior LLE into the thigh and sometimes into the ankle. Hx of torn ACL, states the L knee hurts like it was when torn. Prior Treatments and Tests None. Treatment Goals Patient/Caregiver Goals Pt goal is to elimnate LLE pain. Self care HEP. 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 Current Functional Impairments (Reported) Functional Limitations- Work/School Avoiding heavy stuff at work as much as possible. Personal Factors Other Personal Factors That May Effect Torn ACL 7 rs ago, loss prevention manager at [employer] restaurant with some lifting, lives on a farm and does farmwork PT-OP-C Subjective Start: 11/29/23 07:25 Freq: Status: Active Protocol: Document 12/20/23 10:34 LRN (Rec: 12/20/23 11:20 LRN [id number]) OP-PT Subjective Patient Comments Patient Comments States LB is feeling better, but Left medial knee pain is still present and having calf pain. PT-OP-J Posture/Palpation/Skin Start: 11/29/23 07:25 Freq: Status: Active Protocol: Document 11/29/23 08:21 LRN (Rec: 11/29/23 09:11 LRN [id number]) Posture Evaluation Position Standing L-Spine Posture Increased Lordosis,Shifted Left Pelvis Posture Neutral Weight Distribution Weight Shifted Right,Weight Shifted Anterior Ankle/Foot Posture (R) Forefoot Abducted Palpation Assessment Location L lateral hip Palpation Location L lateral hip Palpation Findings Muscle Guarding Back Palpation Location L3 & S3 Palpation Findings Tenderness PT-OP-K Range of Motion Start: 11/29/23 07:25 Freq: Status: Active Protocol: Document 11/29/23 08:21 LRN (Rec: 11/29/23 09:11 LRN [id number]) Hip Goniometric Range of Motion Hip Right Passive Testing Position Supine Internal Rotation 50 External Rotation 45 Left Passive Testing Position Supine Internal Rotation 40 External Rotation 50 PT-OP-L Special Tests Start: 11/29/23 07:25 Freq: Status: Active Protocol: Document 12/20/23 10:34 LRN (Rec: 12/20/23 11:20 LRN [id number]) Special Tests Lumbar Spine Special Tests Manual Traction Test Results negative Comments increased L posterior thigh pain. Slump Test Results + R side Comments Pain posterior knee PT-OP-M Strength Start: 11/29/23 07:25 Freq: Status: Active Protocol: Document 11/29/23 08:21 LRN (Rec: 11/29/23 09:11 LRN [id number]) Trunk Strength Trunk Manual Muscle Testing Core Stabilization Mild decrease in trunk rot strength. Hip Strength Hip Manual Muscle Testing Right Flexion (L2) 5 Normal Left Flexion (L2) 5 Normal PT-OP-Q Treatments Start: 11/29/23 07:25 Freq: Status: Active Protocol: Document 12/20/23 10:34 LRN (Rec: 12/20/23 11:20 LRN [id number]) Therapeutic Exercises Prone Exercises JO Prone Exercise Name JO Reps/Minutes 10x 2 (3') Comments Cued for breath and to keep pelvis on table. Manual Therapy Treatment Soft Tissue Mobilization Sacral balancing Comments L Sacral sulcus: Inferior glide, PA Shear to Manual Traction Lumbar Details Lumbar traction Body Position Hooklying Reps/Duration 5' Comments Incr'd distal thigh pain, mainly medially. PT-OP-R Modalities Start: 11/29/23 07:25 Freq: Status: Active Protocol: Document 12/20/23 10:34 LRN (Rec: 12/20/23 14:28 LRN [id number]) Hot Pack/Cold Pack Treatment Hot Pack Location Posterior L thigh Patient Position Prone Patient Tolerance Good Comments 10' Cold Pack Location rashi LB Patient Position Prone Patient Tolerance Good Comments 10' PT-OP-T Assessment and Plan Start: 11/29/23 07:25 Freq: Status: Active Protocol: Document 12/20/23 10:34 LRN (Rec: 12/20/23 11:20 LRN [id number]) Physical Therapy Assessment Goals Two Impairment LBP/L LE pain rated 6/10 Impairment DUY score is 16/50 (32/100= 32 % impaired) Short Term Goal (STG) Decrease LBP & LLE pain 50% STG Duration 4 wks-12/28/23 Inker And Opaquer Goal (LTG) Decrease LBP to prior level and eliminate LLE pain. Improve function per DUY score . LTG Duration 8 wks-01/25/24 One Impairment Pt lacks self care HEP. Short Term Goal (STG) Pt will be educated in proper sit/stand posture and understanding stress on back in different postures (Proper Posture: Rowley to Safe Movement ). 12/06/23: Educated pt in subjects above with handouts issued. STG Duration 4 wks-12/28/23 (12/06/23: MET GOAL) Inker And Opaquer Goal (LTG) Pt will be independent in a self care HEP of low back, core and hip ROM and strengthening exercises. 12/06/23: Educated in general body mechanics. LTG Duration 8 wks-01/25/24 progressed Assessment Summary Assessment Pt is a 33 yo male who initially presented with L sciatic pain symptoms; manual traction increased pain; + Miri Test, + L Slump, - L/S traction. Today he presented with +Slump, - L/S traction. Pain complaint in lower L sacral borer region and along Saphenous nerve (L3, L4) course of medial posterior thigh, across knee and medial side of lower leg; indicating neural involvement. Pt is sore in lower sacral region, medial L knee & posterior medial calf. Physical Therapy Plan Frequency and Duration Frequency of Treatment 1x/Week Duration of treatment (weeks) 8 Plan of Care Start Date 11/29/23 Plan of Care End Date 01/25/24 Next Visit Focus/Plan Next Note Type Treatment Note Next Visit Plan 3 visits, others pre-auth required. Discuss if pt to be mostly on HEP if financial concerns. Assess response to sacral balancing (and pelvic obliquity of rot) and use of hot/cold treatment to medial knee (monitor L posterior distal thigh pain/swelling) and ice to LB. NEXT: Rx for L3-L4 saphenous n. involvement. End w/MH or ice/IFES to [L3-L4]/Sacrum for pain management. Review Sitting SL hip AD stretch, Supine stretches: Fig 4, and if tolerated Piriformis/ Lateral hip & HEP if tolerated , along with JO. ADD: L Iliopsoas stretch & manual STM if tolerated and strengthening trunk rotation. Assess for trunk mobility and add to HEP ex's as appropriate . Discuss/educate pt in proper sitting and standing posture with emphasis on decreasing lordosis in standing and preventing lumbar flexion in sitting, equal weightbearing standing. Continue with Hip stretching that is tolerable and appropriate.
--- NOTE | 2023-12-27 10:54 | PT-OP ANOTE ---
10:53 am Phoned patient and left message to make patient aware of policy for no show, charge and discharge after 2 no shows. Also left date and time of next physical therapy appointment on message.
--- NOTE | 2024-01-03 10:57 | PT-OP ANOTE ---
Pt notified of missed appointment. Pt canceled his last appt. Informed pt this was his 2nd missed appt (DNS & cx) and compliance contract. Requested pt call back to discuss continuation of therapy, but if not notified by the end of next week he will be discharged from therapy. Pt given option of talking to Yamila Griggs, director regarding cancel and DNS. Number given to clinic to return call.
--- NOTE | 2024-01-08 09:34 | PT-OP ANOTE ---
Phoned patient, left message regarding no show policy and that he would need to phone ( phone number for clinic provided ) in by then end of this week 01/11/2024, in order to keep his appointment 01/17/2024 as he will be discharged from physical therapy and that appointment will be canceled if there is no contact.
--- NOTE | 2024-01-11 18:55 | PT.OPDS ---
Current Diagnoses Lumbago with sciatica, left side (12/20/23) Visit Care Team Role Provider Type Matheus Marks MD Attending Provider Physician Family Provider Primary Care Provider Referring Provider Specialty: Family Practice Obstetrics Address: [place], [address] Email: [email or web address] Visit Number Visit Number 4 Discharge Summary PT-OP-B Current Condition Start: 11/29/23 07:25 Freq: Status: Active Protocol: Document 11/29/23 08:21 LRN (Rec: 11/29/23 09:11 LRN [id number]) Current Condition History of Current Condition Onset Date 4-5 months ago. Current Complaints Back/LLE posterior thigh constant pain. History of Current Condition Back pain since high school. Has high pain tolerance, but in past 4-5 months the back pain is now down the posterior LLE into the thigh and sometimes into the ankle. Hx of torn ACL, states the L knee hurts like it was when torn. Prior Treatments and Tests None. Treatment Goals Patient/Caregiver Goals Pt goal is to elimnate LLE pain. Self care HEP. 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 Current Functional Impairments (Reported) Functional Limitations- Work/School Avoiding heavy stuff at work as much as possible. Personal Factors Other Personal Factors That May Effect Torn ACL 7 rs ago, manager employee benefits at [employer] restaurant with some lifting, lives on a farm and does farmwork PT-OP-C Subjective Start: 11/29/23 07:25 Freq: Status: Active Protocol: Document 12/20/23 10:34 LRN (Rec: 12/20/23 11:20 LRN [id number]) OP-PT Subjective Patient Comments Patient Comments States LB is feeling better, but Left medial knee pain is still present and having calf pain. PT-OP-J Posture/Palpation/Skin Start: 11/29/23 07:25 Freq: Status: Active Protocol: Document 11/29/23 08:21 LRN (Rec: 11/29/23 09:11 LRN [id number]) Posture Evaluation Position Standing L-Spine Posture Increased Lordosis,Shifted Left Pelvis Posture Neutral Weight Distribution Weight Shifted Right,Weight Shifted Anterior Ankle/Foot Posture (R) Forefoot Abducted Palpation Assessment Location L lateral hip Palpation Location L lateral hip Palpation Findings Muscle Guarding Back Palpation Location L3 & S3 Palpation Findings Tenderness PT-OP-K Range of Motion Start: 11/29/23 07:25 Freq: Status: Active Protocol: Document 11/29/23 08:21 LRN (Rec: 11/29/23 09:11 LRN [id number]) Hip Goniometric Range of Motion Hip Right Passive Testing Position Supine Internal Rotation 50 External Rotation 45 Left Passive Testing Position Supine Internal Rotation 40 External Rotation 50 PT-OP-L Special Tests Start: 11/29/23 07:25 Freq: Status: Active Protocol: Document 12/20/23 10:34 LRN (Rec: 12/20/23 11:20 LRN [id number]) Special Tests Lumbar Spine Special Tests Manual Traction Test Results negative Comments increased L posterior thigh pain. Slump Test Results + R side Comments Pain posterior knee PT-OP-M Strength Start: 11/29/23 07:25 Freq: Status: Active Protocol: Document 11/29/23 08:21 LRN (Rec: 11/29/23 09:11 LRN [id number]) Trunk Strength Trunk Manual Muscle Testing Core Stabilization Mild decrease in trunk rot strength. Hip Strength Hip Manual Muscle Testing Right Flexion (L2) 5 Normal Left Flexion (L2) 5 Normal PT-OP-T Assessment and Plan Start: 11/29/23 07:25 Freq: Status: Active Protocol: Document 01/11/24 18:50 LRN (Rec: 01/11/24 18:55 LRN [id number]) Physical Therapy Assessment Goals Two Impairment LBP/L LE pain rated 6/10 Impairment DUY score is 16/50 (32/100= 32 % impaired) Short Term Goal (STG) Decrease LBP & LLE pain 50% STG Duration 4 wks-12/28/23 (01/11/24: NOT MET GOAL) Pedal Assembler Goal (LTG) Decrease LBP to prior level and eliminate LLE pain. Improve function per DUY score . LTG Duration 8 wks-01/25/24 (01/11/24: NOT MET GOAL) One Impairment Pt lacks self care HEP. Short Term Goal (STG) Pt will be educated in proper sit/stand posture and understanding stress on back in different postures (Proper Posture: Rowley to Safe Movement ). 12/06/23: Educated pt in subjects above with handouts issued. STG Duration 4 wks-12/28/23 (12/06/23: MET GOAL) Pedal Assembler Goal (LTG) Pt will be independent in a self care HEP of low back, core and hip ROM and strengthening exercises. 12/06/23: Educated in general body mechanics. LTG Duration 8 wks-01/25/24 progressed Assessment Summary Assessment Pt is a 33 yo male who initially presented with L sciatic pain symptoms; manual traction increased pain; + Miri Test, + L Slump, - L/S traction. The pt was seen for his initial eval and 3 treatment visits. He failed to return for his next 4 visits and we have been unsuccessful in reaching the patient by phone. The pt has not shown for over 1/2 his treatment visits; therefore his being discharged from therapy due to lack of attendance. Physical Therapy Plan Discharge Physical Therapy Discharge Reasons No Longer Attending PT Discharge Comments Thank you for your referral.
== END 2024-01-15 10:55 | disposition home or self-care (01) ==
LOC: PHYS 10:30
PROVIDERS: Family Provider Family Medicine; PCP Family Medicine; Referring Provider Family Medicine; Visit Provider Family Medicine
DX: M54.42 Lumbago with sciatica, left side (principal)
CPT/HCPCS: 97010; 97110; 97140; 97162; 97530; 97535

== ENCOUNTER → 2024-01-15 12:16 | Outpatient (CLI) | payer OTHER, SELFPAY ==
--- NOTE | 2024-01-15 12:17 | DI.MRI.S_ITS ---
PROCEDURE: MR HAND RT WO CON INDICATIONS: Chronic right hand/wrist pain, normal XR, failed OT/PT TECHNIQUE: Noncontrast coronal T1 spin echo and T2 fast spin echo with fat saturation, axial proton density fast spin echo and T2 fast spin echo with fat saturation, sagittal T1 spin echo and STIR through the hand and fingers. COMPARISON: [facility]ated [facility], CR, XR WRIST RT MIN 3V, 11/15/2023, 9:25. FINDINGS: Image quality: Excellent. Bones: The bones are normally aligned, without marrow contusions or fractures. No intra-osseous lesions. Soft tissues: Mild extensor carpi ulnaris tendinosis and tenosynovitis at the level of the ulnar groove. The remaining visualized flexor and extensor tendons are intact. Visualized muscles demonstrate normal bulk and internal signal. No intramuscular masses identified. No ganglion cysts. IMPRESSION: 1. Mild extensor carpi ulnaris tendinosis and tenosynovitis. 2. Otherwise, no significant ligament or tendon injury is seen. No acute trabecular bone injury. No significant arthritic changes. Approved by: Caesar Mena M.D. on 01/15/2024 at 22:57
== END ==
PROVIDERS: Family Provider Family Medicine; PCP Family Medicine; Referring Provider Orthopaedic Surgery; Visit Provider Orthopaedic Surgery
DX: M65.841 Other synovitis and tenosynovitis, right hand (principal); M79.641 Pain in right hand; M79.631 Pain in right forearm
CPT/HCPCS: 73218

== ENCOUNTER → 2024-01-31 08:16 | Outpatient (CLI) | payer OTHER, SELFPAY ==
--- NOTE | 2024-01-31 08:17 | DI.MRI.S_ITS ---
PROCEDURE: MR LUMBAR SPINE WO CON INDICATIONS: Chronic low back pain, lumbar radiculopathy, LLE pain TECHNIQUE: Noncontrast sagittal T1 spin echo and T2 fast echo, sagittal STIR, and T2 fast spin echo through the lumbar spine. In cases with scoliosis, additional coronal T2 fast spin echo may be performed. COMPARISON: [facility], CR, XR LUMBAR SPINE 2-3V, 11/15/2023, 9:25. FINDINGS: Image quality: Excellent. Alignment and Curvature: There is normal bony alignment. Bone Marrow: Marrow is of normal overall signal. No acute vertebral body compression fractures. Spinal Cord: Conus medullaris terminates at the L1 level. Visualized cord demonstrates normal signal and size. Paraspinous Soft Tissues: No paravertebral masses. T12-L1: Normal appearance. L1-L2: Normal appearance. L2-L3: Normal appearance. L3-L4: Normal appearance. L4-L5: Normal appearance. L5-S1: Normal appearance. IMPRESSION: No significant abnormality is seen. No significant disc pathology. No significant neural foraminal or central canal narrowing can be seen. Dictated by: Av Morales M.D. on 01/31/2024 at 11:29 Approved by: Av Morales M.D. on 01/31/2024 at 11:30
== END ==
PROVIDERS: Family Provider Family Medicine; PCP Family Medicine; Referring Provider Anesthesiology; Visit Provider Anesthesiology
DX: M54.16 Radiculopathy, lumbar region (principal)
CPT/HCPCS: 72148

== ENCOUNTER 2024-03-10 11:54 | Emergency (ER) | payer OTHER, SELFPAY ==
[2024-03-10 12:08] VITALS: BP 145/87; PULSE 67; RESP 18; TEMP 36.9; O2SAT 100; BMI 23.7
--- NOTE | 2024-03-10 12:18 | EKG_ITS ---
[address] [address] [address] [address] Test Date: 2024-03-10 Pat Name: Ander Hubbard Department: Room: Gender: Male Or First Assist Registered Nurse: MOIRA : 1990 Requested By: Order Number: [id number] Reading MD: Lenin Griggs Measurements Intervals [place] Rate: 60 P: 24 [place]: 130 QRS: 10 QRSD: 80 T: 21 QT: 414 QTc: 414 Interpretive Statements Normal sinus rhythm Electronically Signed On 03-12-2024 16:44:37 PDT by Lenin Griggs
--- NOTE | 2024-03-10 14:13 | ED.NECK ---
HPI - Neck Pain/Injury <Yolanda Hsu PA-C - Last Filed: 03/10/24 14:18> General Chief Complaint: Neck Pain/Injury Stated Complaint: neck and should pain+brought by [facility] Time Seen by Provider: 03/10/24 13:59 History of Present Illness HPI Narrative: 34-year-old male with past medical history sciatica presents to the ED with 6 days of left-sided neck pain, radiating into his left shoulder and arm. No trauma. Patient states that the pain started spontaneously 6 days ago, reproducible with head movements. Patient states that he has been taking ibuprofen with minimal relief. Unclear what the dosage of the ibuprofen was. No numbness, tingling, weakness. No chest pain, shortness of breath. Related Data Previous Rx's Medication Instructions Recorded duloxetine 30 mg capsule,delayed 60 mg (2 x 30 mg) PO DAILY #60 caps 12/26/23 release gabapentin 300 mg capsule 300 mg PO .COMPLEX #90 caps 01/24/24 Allergies Allergy/AdvReac Type Severity Reaction Status Date / Time No Known Drug Allergies Allergy Verified 02/12/24 10:14 Review of Systems <Yolanda Hsu PA-C - Last Filed: 03/10/24 14:18> Constitutional Constitutional: Denies chills, Denies fatigue, Denies fever(s), Denies frequent falls, Denies lethargy and Denies weakness Eyes Eyes: Denies change in vision, Denies eye discharge, Denies irritation and Denies loss of vision ENT Ears, Nose, Mouth, and Throat: Denies change in voice, Denies dizziness, Reports neck pain, Denies sore throat and Denies throat swelling Cardiovascular Cardiovascular: Denies chest pain, Denies irregular heart rhythm, Denies lightheadedness, Denies palpitations, Denies dyspnea, Denies dyspnea on exertion and Denies orthopnea Respiratory Respiratory: Denies cough, Denies dyspnea, Denies dyspnea on exertion and Denies wheezing Gastrointestinal Gastrointestinal: Denies abdominal pain, Denies change in bowel habits, Denies diarrhea, Denies nausea and Denies vomiting Musculoskeletal Musculoskeletal: Reports neck pain, Denies numbness and Reports radiating pain into limb Integumentary/Breasts Skin/Breast: Denies pruritus, Denies erythema, Denies rash and Denies wounds Neurologic Neurologic: Denies behavioral changes, Denies confusion, Denies dizziness, Denies frequent falls, Denies loss of vision, Denies numbness and Denies weakness Psychiatric Psychiatric: Denies anxiety, Denies behavioral changes, Denies confusion, Denies depression, Denies homicidal ideation and Denies suicidal ideation Endocrine Endocrine: Denies fatigue, Denies flushing and Denies palpitations Hematologic/Lymphatic Hematologic/Lymphatic: Denies easy bruising Allergic/Immunologic Allergic/Immunologic: Denies urticaria, Denies throat swelling and Denies wheezing Patient History <Yolanda Hsu PA-C - Last Filed: 03/10/24 14:18> Medical History Lumbar radiculopathy Right forearm pain Right hand pain Low back pain with left-sided sciatica Surgical History Anesthesia History of varicocele (~2013) Family History Father Diabetes mellitus Mother Rheumatoid arthritis Grandfather Diabetes mellitus Grandfather Cancer Diabetes mellitus Social History marital status: unmarried,single sexual history: engages with both men and women, inconsistent condom use Smoking Status: Former smoker Smokeless tobacco user: other (vape) alcohol intake: current (6-12 servings weekly) substance use type: marijuana (daily) additional social history: Smoking Status: Former smoker alcohol intake frequency: a few times a week Alcohol type: beer Substance Use Type: marijuana Exam <Yolanda Hsu PA-C - Last Filed: 03/10/24 14:18> Narrative Exam Narrative: Const General:?cooperative, healthy appearing and comfortable [facility] Head:?normal to inspection Ears:?hearing grossly normal bilaterally Nose:?external nose normal Face and sinus:?normal facial exam and sinuses nontender Mouth:?oral mucosae normal Throat:?posterior oropharynx normal Eyes General:?appearance normal, both eyes and all related structures Neck Neck:?normal visual inspection and no lymphadenopathy noted Resp Effort & Inspection:?normal respiratory effort Auscultation:?clear to auscultation bilaterally Cardio Rate:?regular rate Rhythm:?regular rhythm Musculoskeletal There is full range of motion of the head and arms. Patient does confirm pain reproduced with head movements. No midline tenderness to palpation. No paraspinal tenderness to palpation. Neurovascularly intact. Neuro General:?patient alert, patient awake and patient oriented x3 Initial Vital Signs Initial Vital Signs: Vital Signs Temperature 98.5 F 03/10/24 12:08 Pulse Rate 67 03/10/24 12:08 Respiratory Rate 18 03/10/24 12:08 Blood Pressure 145/87 H 03/10/24 12:08 Pulse Oximetry 100 03/10/24 12:08 Oxygen Delivery Method Room Air 03/10/24 12:08 <Jeri Munzo DO - Last Filed: 03/17/24 17:21> Initial Vital Signs Initial Vital Signs: Vital Signs Temperature 98.5 F 03/10/24 12:08 Pulse Rate 67 03/10/24 12:08 Respiratory Rate 18 03/10/24 12:08 Blood Pressure 145/87 H 03/10/24 12:08 Pulse Oximetry 100 03/10/24 12:08 Oxygen Delivery Method Room Air 03/10/24 12:08 Course <Yolanda Hsu PA-C - Last Filed: 03/10/24 14:18> Orders Ordered: Discontinued Medications Ketorolac Tromethamine (Ketorolac 30 Mg/Ml Vial) 30 mg IM NOW ONE Stop: 03/10/24 14:11 Last Admin: 03/10/24 14:16 Dose: 30 mg Documented By: DAVI Vital Signs Vital signs: Vital Signs - 8 hr 03/10/24 12:08 Temperature 98.5 F Pulse Rate 67 Respiratory Rate 18 Pulse Oximetry 100 Oxygen Delivery Method Room Air <DO James Daly Last Filed: 03/17/24 17:21> Orders Ordered: Discontinued Medications Ketorolac Tromethamine (Ketorolac 30 Mg/Ml Vial) 30 mg IM NOW ONE Stop: 03/10/24 14:11 Last Admin: 03/10/24 14:16 Dose: 30 mg Documented By: BS Vital Signs Vital signs: Vital Signs - 8 hr 03/10/24 12:08 Temperature 98.5 F Pulse Rate 67 Respiratory Rate 18 Pulse Oximetry 100 Oxygen Delivery Method Room Air MDM - Neck Pain/Injury <SHANA Vicente Last Filed: 03/10/24 14:18> MDM Narrative Medical decision making narrative: 34-year-old male with past medical history sciatica presents to the ED with 6 days of left-sided neck pain, radiating into his left shoulder and arm. Physical exam is reassuring for full range of motion and no midline or paraspinal tenderness to palpation. Pain is reproducible with neck movements. Patient's symptoms most consistent with a neck sprain/strain. Patient given a dose of Toradol IM in the ED. Prescribed Flexeril. Recommend follow-up with PCP, pain management. ED return precautions discussed with patient. Patient verbalized understanding. Medical records reviewed: Yes Discharge Plan Departure Patient Disposition: Home Clinical Impression: Strain of neck muscle Qualifiers: Encounter type: initial encounter Qualified Code(s): S16.1XXA - Strain of muscle, fascia and tendon at neck level, initial encounter Instructions: DI for Neck Pain Activity Restrictions/Additional Instructions: You were evaluated in the ED today for neck pain. It appears that your symptoms are most consistent with a neck muscle sprain/strain. You were given an injection of Toradol in the ED today. You are being prescribed Flexeril which is a muscle relaxant for further relief. You may also take 800 mg of ibuprofen every 8 hours with food for pain. You may also add on 1000 mg of Tylenol every 8 hours. Please follow-up with your PCP and [facility] [employer] as soon as possible. Return to the ED if you have worsening symptoms, numbness, tingling, weakness. Prescriptions: No Action duloxetine 30 mg capsule,delayed release(DR/EC) 60 mg PO DAILY Qty: 60 2RF Rx Instructions: Take 1 tab daily for 2 weeks then increase to 2 tabs daily gabapentin 300 mg capsule 300 mg PO .COMPLEX Qty: 90 2RF Rx Instructions: 1 PO QHS x3 days if tolerated, 1 PO BID x3 days if tolerated, 1 PO TID Referrals: Matheus Marks MD [Primary Care Provider] - Stand Alone Forms: Patient Portal/API ED Sign-out <Jeri Munoz DO - Last Filed: 03/17/24 17:21> Cosign ED Attending Cosignature Attestation: I was available for consultation.
[2024-03-10] MEDS: KETOROLAC 30 MG/ML VIAL IM (14:16)
[2024-03-10 14:48] VITALS: BP 143/85; PULSE 63; RESP 16; O2SAT 99
== END 2024-03-10 14:48 | disposition home or self-care (01) ==
PROVIDERS: Emergency Provider Student in an Organized Health Care Education/Training Program; Family Provider Family Medicine; PCP Family Medicine
DX: S16.1XXA Strain of muscle, fascia and tendon at neck level, initial encounter (principal)
CPT/HCPCS: 93005; 96372; 99283; J1885

== ENCOUNTER → 2024-04-16 10:29 | Outpatient (CLI) | payer OTHER, SELFPAY ==
[2024-04-16 12:04] LABS: Erythrocyte Sedimentation Rate 1 MM/HR (0-15)
[2024-04-16 12:43] LABS: C-Reactive Protein Quant < 0.5 mg/dL (<1.0); Rheumatoid Factor < 8.6 IU/mL (<12.0)
== END ==
PROVIDERS: Family Provider Family Medicine; PCP Family Medicine; Referring Provider Family Medicine; Visit Provider Family Medicine
DX: M54.42 Lumbago with sciatica, left side (principal); M79.641 Pain in right hand; M25.50 Pain in unspecified joint
CPT/HCPCS: 36415; 85651; 86038; 86140; 86200; 86430

== ENCOUNTER → 2024-08-06 10:18 | Outpatient (CLI) | payer OTHER, SELFPAY ==
--- NOTE | 2024-08-06 10:20 | DI.RAD.S_ITS ---
PROCEDURE: XR THORACIC SPINE 3V INDICATIONS: neck pain and upper back pain TECHNIQUE: 3 views of the thoracic spine were acquired. COMPARISON: None. FINDINGS: Bones: No fractures or dislocations. No suspicious bony lesions. 12 pairs of ribs are noted, and appear intact where visualized. Soft tissues: No paravertebral stripe thickening. IMPRESSION: No visualized acute fracture or dislocation. However, if clinical concern and/or pain persist, short interval imaging followup in 7-10 days is recommended, as occult injury cannot be definitively excluded. Dictated by: Birgit Mckay M.D. on 08/06/2024 at 19:40 Approved by: Birgit Mckay M.D. on 08/06/2024 at 19:40
--- NOTE | 2024-08-06 10:20 | DI.RAD.S_ITS ---
PROCEDURE: XR CERVICAL SPINE 2V OR 3V INDICATIONS: neck pain and upper back pain TECHNIQUE: 3 view(s) of the cervical spine were acquired. COMPARISON: None. FINDINGS: Bones: No fractures or dislocations to the T1 level. The lateral masses of C1 appear intact on the odontoid view. No suspicious bony lesions. Soft tissues: No prevertebral soft tissue swelling. IMPRESSION: Unremarkable exam. Dictated by: Birgit Mckay M.D. on 08/06/2024 at 19:40 Approved by: Birgit Mckay M.D. on 08/06/2024 at 19:41
== END ==
PROVIDERS: Family Provider Family Medicine; PCP Family Medicine; Referring Provider Family Medicine; Visit Provider Family Medicine
DX: M54.2 Cervicalgia (principal); M54.9 Dorsalgia, unspecified
CPT/HCPCS: 72040; 72072

== ENCOUNTER → 2025-07-15 08:57 | Outpatient (CLI) | payer SELFPAY ==
--- NOTE | 2025-07-15 08:57 | DI.RAD.S_ITS ---
PROCEDURE: XR KUB INDICATIONS: Epigastric pain, possible constipation TECHNIQUE: One view of the abdomen acquired. COMPARISON: None. FINDINGS: Surgical changes and devices: None. Bowel: Bowel gas pattern is nonobstructive. Fecal stasis in the colon is seen. Soft tissues: No suspicious abdominal calcifications. Visualized solid organ contours appear normal in size. Bones: No suspicious bony lesions. IMPRESSION: Mild constipation. No bowel obstruction or gross free air. No abnormal renal calcifications. Dictated by: Mj Raman M.D. on 07/15/2025 at 10:20 Approved by: Mj Raman M.D. on 07/15/2025 at 10:21
[2025-07-15 10:08] LABS: Add Manual Diff / Slide Review NO; Hematocrit 43.2 % (41-53); Hemoglobin 15.0 g/dL (13.5-17.5); Lymphocytes Absolute Auto 1100 /uL (1100-4500); Mean Corpuscular HGB Conc 34.8 % (30-36); Mean Corpuscular Hemoglobin 29.9 PG (26-34); Mean Corpuscular Volume 85.8 fL (80-100); Platelet Count 263 X10^3/uL (150-400)
[2025-07-15 10:35] LABS: Appearance Urine UA CLEAR; Bilirubin Urine UA NEGATIVE (NEGATIVE); Color Urine UA YELLOW; Glucose Urine UA NEGATIVE (Negative); Ketones Urine UA NEGATIVE (NEGATIVE); Leukocyte Esterase Urine UA NEGATIVE (NEGATIVE); Nitrite Urine UA NEGATIVE (Negative); Occult Blood Urine UA NEGATIVE (Negative); Protein Urine UA NEGATIVE (Negative); Specific Gravity Urine UA 1.025 (1.000-1.035); Urobilinogen Urine UA 0.2 E.U./dL (0.2); pH Urine UA 5.5 (4.5-8.0)
[2025-07-15 10:36] LABS: Alanine Aminotransferase 30 IU/L (<50); Albumin 4.6 g/dL (3.5-5.0); Albumin Globulin Ratio 1.6 (1.0-2.8); Alkaline Phosphatase 58 U/L (38-126); Blood Urea Nitrogen 18 mg/dL (9-20); Calcium 9.8 mg/dL (8.4-10.2); Carbon Dioxide 25 mmol/L (22-32); Chloride 105 mmol/L (98-107); Estimated Glomerular Filt Rate > 60 mL/min (>60); Globulin 2.9 g/dL (1.7-4.1); Glucose 100 mg/dL (70-99); HEMOLYSIS < 15 (0-50); Potassium 4.4 mmol/L (3.4-5.1); Sodium 143 mmol/L (137-145); Total Protein 7.5 g/dL (6.3-8.2)
[2025-07-15 10:39] LABS: Culture Indicated Urine Cult Not Indicated
[2025-07-15 11:06] LABS: Microalbumi Creatinin Ratio Ur 4.0 ug/mg CR (<30)
[2025-07-18 22:36] LABS: H. Pylori Antigen Stool Negative (Negative)
== END ==
LOC: RAD 08:57
PROVIDERS: Chiropractor; Family Provider Family Medicine; PCP Family Medicine; Referring Provider Family Medicine; Visit Provider Family Medicine
DX: K59.00 Constipation, unspecified (principal); R10.13 Epigastric pain; R10.9 Unspecified abdominal pain; N28.9 Disorder of kidney and ureter, unspecified; R10.85 Abdominal pain of multiple sites; R11.0 Nausea; R39.15 Urgency of urination
CPT/HCPCS: 36415; 74018; 80053; 81001; 82043; 82270; 82570; 85025; 87338

== ENCOUNTER → 2025-08-11 09:50 | Outpatient (CLI) | payer SELFPAY ==
--- NOTE | 2025-08-11 09:51 | DI.US.S_ITS ---
PROCEDURE: US SCROTUM INDICATIONS: Pain in left testicle TECHNIQUE: Real-time scanning was performed of the scrotum and testicles, with image documentation. Color and pulse Doppler interrogation was performed of both testicles. COMPARISON: None. FINDINGS: Right: Testicle is normal in size at 5.6 x 2.7 x 3.1 cm, and homogenous in echotexture. Epididymis is normal in overall size and morphology. No hydrocele or varicoceles. Overlying scrotal skin is normal in thickness. Left: Testicle is normal in size at 5.4 x 2.4 x 3.3 cm, and homogeneous in echotexture. Epididymis is normal in overall size and morphology. No hydrocele or varicoceles. Overlying scrotal skin is normal in thickness. Doppler: Color and pulse Doppler demonstrate normal and symmetric arterial flow in both testicles. Solid-appearing lesion within the left inguinal canal measuring 1.3 x 0.7 x 0.8 cm with calcification and shadowing. IMPRESSION: Solid-appearing lesion within the left inguinal canal with small calcification and shadowing measuring up to 1.3 cm. Etiology is uncertain. This may be better evaluated on subsequent CT scan. Recommend follow-up ultrasound to assess stability. Testes and epididymides are normal in appearance. Dictated by: Mansoor Vazquez M.D. on 08/11/2025 at 11:12 Approved by: Mansoor Vazquez M.D. on 08/11/2025 at 11:17
--- NOTE | 2025-08-11 09:51 | DI.CT.S_ITS ---
PROCEDURE: CT ABDOMEN PELVIS W CON INDICATIONS: Lower Left Quadrant Pain TECHNIQUE: After the administration of intravenous contrast, axial sections acquired from the lung bases to the pubic symphysis. Coronal and sagittal reformats were performed. For radiation dose reduction, the following was used: automated exposure control, adjustment of mA and/or kV according to patient size. COMPARISON: [facility], CR, XR KUB, 07/15/2025, 8:53. FINDINGS: Image quality: Diagnostic. Lower Chest: Mild bibasilar dependent atelectasis. Heart size is normal, no pericardial effusion. ABDOMEN: Liver: No solid mass. Gallbladder: No radiopaque gallstones or wall thickening. Biliary ducts: No biliary dilation. Pancreas: No ductal dilation. Spleen: Size is within normal limits. Adrenal Glands: No adrenal nodules. Kidneys and Ureters: No hydronephrosis. No solid mass. No complex renal cystic lesion which requires follow up. Stomach and Bowel: There is no bowel obstruction. No gastric or small bowel wall thickening. Diffuse colonic wall thickening with pericolonic fat stranding, wall edema and narrowing of the lumen. No abscess collection. Peritoneum: No abnormal intraperitoneal fluid. No free air. Ventral Wall: No significant ventral hernia. Abdominal Nodes: No retroperitoneal or mesenteric adenopathy by size criteria. Vessels: Aorta and inferior vena cava are normal in size. PELVIS: Pelvic Organs: Unremarkable. Bladder: No bladder wall thickening, accounting for underdistention. Pelvic Nodes: No enlarged lymph nodes. Miscellaneous: No inguinal hernias are seen. Bones: No aggressive osseous abnormality. IMPRESSION: 1. Finding is suggestive of low to moderate grade pancolitis. No gastric or small bowel wall thickening. No abscess collection. No free fluid or free air. 2. No renal stones or hydronephrosis. Dictated by: Mj Raman M.D. on 08/11/2025 at 16:07 Approved by: Mj Raman M.D. on 08/11/2025 at 16:15
== END ==
PROVIDERS: Family Provider Family Medicine; PCP Family Medicine; Referring Provider Family Medicine; Visit Provider Family Medicine
DX: N50.812 Left testicular pain (principal); R10.32 Left lower quadrant pain; R19.09 Other intra-abdominal and pelvic swelling, mass and lump; Z86.79 Personal history of other diseases of the circulatory system
CPT/HCPCS: 74177; 76870; 93975; Q9967